=== PATIENT | male | born 1965 | race American Indian/Alaskan Native ===

== ENCOUNTER 2017-11-03 05:57 | Inpatient (IN) | payer BC ==
[~2017-11-03 05:57] MED LIST: Buffered Lidocaine 0.9% SYRIN* 5 ML/SYR SYRINGE INTRADERM ONE
[2017-11-03] MEDS ORDERED: ceFAZolin 2 GM PREMIX (*) 2 GM/50 ML BAG IVPB ONE (06:14)
[2017-11-03] MEDS ORDERED: ceFAZolin 1 GM in Dextrose (*) 1 GM/50 ML BAG IVPB ONE (06:14)
[2017-11-03] MEDS ORDERED: Clindamycin 900 MG IVPREMIX(* 900 MG/50 ML SDV IV ONE (06:14)
[2017-11-03] MEDS ORDERED: Buffered Lidocaine 0.9% SYRIN* 5 ML/SYR SYRINGE ONE (06:14)
[2017-11-03] MEDS ORDERED: Methylene Blue 0.5 %* 50 MG/10 ML AMP IV ONE (07:07)
[2017-11-03] MEDS ORDERED: Bupivacaine 0.25% SDV* 30 ML ONE (07:08)
[2017-11-03] MEDS ORDERED: fentaNYL* 50 MCG/ML 2 ML VIAL (100 MCG VIAL) ONE ×3 (07:22→09:56)
[2017-11-03] MEDS ORDERED: Midazolam* 1 MG/ML 2 ML VIAL (2 MG) ONE (07:22)
[2017-11-03] MEDS ORDERED: Heparin VIAL(*) 5000 UNITS/ML VIAL (FIVE THOUSAND) ONE (07:30)
[2017-11-03] MEDS ORDERED: Propofol* 10 MG/ML 20 ML BTL IV PUSH ONE (07:39)
[2017-11-03] MEDS ORDERED: Lidocaine 2% PF * 5 ML VIAL ONE (07:39)
[2017-11-03] MEDS ORDERED: Dexamethasone IV* 4 MG/ML 1 ML (4 MG) ONE (07:39)
[2017-11-03] MEDS ORDERED: Famotidine IV* 10 MG/ML 2 ML (20 mg) ONE (07:39)
[2017-11-03] MEDS ORDERED: Cisatracurium* 2 MG/ML MDV 5 ML ONE ×2 (07:40→08:20)
[2017-11-03] MEDS ORDERED: Hetastarch in NS* 500 ML IV ONE (08:04)
[2017-11-03] MEDS ORDERED: Acetaminophen IV 1GM/100ML * 10 MG/ML VIAL IVPB ONE (09:19)
[2017-11-03] MEDS ORDERED: DiMENhydriNATE IV* 50 MG/ML VIAL IV PUSH PRN (09:19)
[2017-11-03] MEDS ORDERED: Naloxone* 0.4 MG/ML 1 ML VIAL IV PRN (09:19)
[2017-11-03] MEDS ORDERED: Ondansetron INJ* 2 MG/ML VIAL IV PRN (09:19)
[2017-11-03] MEDS ORDERED: PROCHLORPERAZINE INJ 5 MG/ML 2 ML VIAL IV PRN (09:19)
[2017-11-03] MEDS ORDERED: fentaNYL* 50 MCG/ML 2 ML VIAL (100 MCG VIAL) IV PRN (09:19)
[2017-11-03] MEDS ORDERED: Ondansetron INJ* 2 MG/ML VIAL ONE (11:08)
[2017-11-03] MEDS ORDERED: Ketorolac INJ* 30 MG/ML 1 ML VIAL ONE (11:22)
[2017-11-03] MEDS ORDERED: HYDROcodone/ACET. 7.5/325 LIQ* 15 ML UDC PO PRN (11:32)
[2017-11-03] MEDS ORDERED: HYDROmorphone INJ* 2 MG/ML CARPUJECT SYRINGE IV PRN (11:32)
[2017-11-03] MEDS ORDERED: diPHENhydraMINE IV* 50 MG/ML 1 ml VIAL (BENADRYL) SLOW PUSH PRN (11:32)
[2017-11-03] MEDS ORDERED: Acetaminophen ADULT LIQ* 650 MG/20.3 ML UDC PO PRN (11:32)
[2017-11-03] MEDS ORDERED: Ketorolac INJ* 30 MG/ML 1 ML VIAL IV PRN (11:32)
--- NOTE | 2017-11-03 11:32 | BRIEFOPN ---
Brief Operative Note - Surgery Procedures: Procedures Pre-OP Diagnoses: Clinically severe obesity Post-op Diagnosis: same Procedure: Laparoscopic Courtney an Y gastric bypass Surgeon: Nini Asst: Vicente Anethesia: REGINO Preciado EBL: <100cc IVF: 1800cc LR 500cc hetastarch Specimen: none Drains: #7 KHOA Echols to gravity: 300cc
[2017-11-03] MEDS ORDERED: Dextrose 50% Syringe 50 ML* 25 GM/50 ML SYRINGE IV PUSH PRN (11:36)
[2017-11-03] MEDS: Insulin LISPRO* 1 UNITS UNIT SUBCUT SCH ×2 (13:41→17:43)
[2017-11-03] MEDS: Heparin VIAL(*) 5000 UNITS/ML VIAL (FIVE THOUSAND) SUBCUT SCH ×2 (14:39→21:39)
[2017-11-03] MEDS ORDERED: Metoclopramide IV* 5 MG/ML 2 ML VIAL IV PRN (14:51)
[2017-11-03] MEDS: Famotidine IV* 10 MG/ML 2 ML (20 mg) IV SLOW PU SCH (21:39)
[2017-11-04] MEDS: Insulin LISPRO* 1 UNITS UNIT SUBCUT SCH ×4 (00:03→18:15)
[2017-11-04] MEDS: Heparin VIAL(*) 5000 UNITS/ML VIAL (FIVE THOUSAND) SUBCUT SCH ×3 (06:04→21:53)
[2017-11-04] MEDS: Famotidine IV* 10 MG/ML 2 ML (20 mg) IV SLOW PU SCH ×2 (07:54→21:55)
--- NOTE | 2017-11-04 10:15 | RAD ---
HISTORY: Status post Courtney-en-Y gastroplasty, rule out leak COMPARISONS: None TECHNIQUE: A single contrast fluoroscopic study was performed of the esophagus and upper GI tract. Water-soluble liquid contrast was administered under fluoroscopic observation. Multiple digital spot images were obtained Total fluoroscopy time is 0.6 minutes. FINDINGS: ESOPHAGUS: The esophagus is normal in contour, course, and caliber. There is no stricture or web. Contrast passes easily through the gastroesophageal junction into the stomach. There is normal esophageal motility. STOMACH: The patient is status post Courtney-en-Y. DUODENUM: The patient is status post Courtney-en-Y. SMALL BOWEL: There is no obstruction to the gastrojejunostomy. Oral contrast passes easily into the proximal small bowel. There is an apparent diverticulum of the small bowel. There is no appreciable extravasation. Surgical drains are noted.. IMPRESSION: STATUS POST COURTNEY-EN-Y GASTROPLASTY WITHOUT APPRECIABLE OBSTRUCTION OR EXTRAVASATION. THERE IS AN APPARENT DIVERTICULUM OF THE JEJUNUM. CPT II Codes: G9500
[2017-11-04] MEDS: D5W 1/2 NS KCl 20 Meq 1000 ML* 1,000 ML IV SCH ×2 (11:09→19:00)
--- NOTE | 2017-11-04 12:16 | PN ---
Progress Note - Progress Note Date of Service: 11/04/17 Note: Surgery Progress: S: POD #1. Doing well; denies pain, N/V. Ambulating well. No SOB. O: Vital Signs - 8 hr 11/04/17 11/04/17 11/04/17 06:00 08:00 09:03 Respiratory 22 16 Rate O2 Sat by Pulse 95 93 Oximetry Intake and Output Last 24 Hours 11/02/17 11/03/17 11/04/17 11/05/17 06:59 06:59 06:59 06:59 Intake Total 4279 995 Output Total 1605 400 Balance 2674 595 Weight 391 lb 391 lb Intake: IV Fluids 4279 995 Hetastarch 500 LR 3779 995 Oral 0 Output: KHOA #1 80 Urine 375 Echols 1150 400 Gen: appears comfortable Heart: reg Lungs: clear ant Abd: +BS; lap sites ok; moderate KHOA drainage (serosang); soft; tenderness at KHOA site only labs: Laboratory Tests 11/03/17 11/03/17 11/03/17 12:27 17:13 23:53 POC Glucose (mg/dL) 201 H 199 H 173 H 11/04/17 05:53 POC Glucose (mg/dL) 161 H UGI: no evidence of obstruction or leak A/P: s/p Lap gastric bypass, doing well; patient also seen by Dr. Terrazas. Will start mariola hadley; Onesimo roberts/[place]
[2017-11-05] MEDS: Insulin LISPRO* 1 UNITS UNIT SUBCUT SCH ×2 (00:39→06:19)
[2017-11-05] MEDS: D5W 1/2 NS KCl 20 Meq 1000 ML* 1,000 ML IV SCH (03:08)
[2017-11-05] MEDS: Heparin VIAL(*) 5000 UNITS/ML VIAL (FIVE THOUSAND) SUBCUT SCH (06:20)
[2017-11-05 08:06] VITALS: BP 115/69
--- NOTE | 2017-11-05 09:49 | PN ---
Progress Note - Progress Note Date of Service: 11/05/17 Note: Subjective: Mr. Ramos is POD#2 from a helene-en-y. He is feeling well. He reports that he is ambulating frequently and has minimal abdominal pain. He has been consuming bariatric clears without N/V. Has not had a BM, but is passing flatus. Denies CP, palpitations, SOB, coughing, wheezing, abdominal pain, N/V. Current Medications Acetaminophen (Tylenol Adult Liq*) 650 mg PO Q6H PRN PRN Reason: Temp > 101 F Or Mild Pain Hydrocodone Bitart/Acetaminophen (Nortab 7.5/325 Liq*) 15 ml PO Q6H PRN PRN Reason: PAIN Last Admin: 11/05/17 04:35 Dose: 15 ml Dextrose (D50w Syringe 50 Ml*) 12.5 gm IV PUSH .FOR FS < 60 - SS PRN PRN Reason: FS < 60 Diphenhydramine HCl (Benadryl Iv*) 25 mg SLOW PUSH Q6H PRN PRN Reason: ITCHING Famotidine (Pepcid Iv*) 20 mg IV SLOW PU BID [facility] Last Admin: 11/04/17 21:55 Dose: 20 mg Fentanyl Citrate (Fentanyl*) 50 mcg IV Q5M PRN PRN Reason: PAIN - MODERATE Heparin Sodium (Porcine) (Heparin Vial(*)) 5,000 units SUBCUT Q8HR [facility] Last Admin: 11/05/17 06:20 Dose: 5,000 units Hydromorphone HCl (Dilaudid Inj*) 1 mg IV Q3H PRN PRN Reason: PAIN Potassium Chloride/Dextrose (D5w 1/2 Ns Kcl 20 Meq 1000 Ml*) 1,000 mls @ 125 mls/hr IV PER RATE [facility] Last Admin: 11/05/17 03:08 Dose: 125 mls/hr Insulin Human Lispro (Humalog*) 0 units SUBCUT Q6HR [facility] PRN Reason: Protocol Last Admin: 11/05/17 06:19 Dose: 6 unit Ketorolac Tromethamine (Toradol Inj*) 30 mg IV Q6H PRN PRN Reason: PAIN Stop: 11/05/17 11:34 Last Admin: 11/03/17 14:39 Dose: 30 mg Metoclopramide HCl (Reglan Iv*) 10 mg IV Q4H PRN PRN Reason: NAUSEA Objective: Vital Signs - 8 hr 11/05/17 11/05/17 11/05/17 04:33 04:35 06:24 Temperature 97.5 F Pulse Rate 94 Respiratory 18 18 18 Rate Blood Pressure 117/70 (mmHg) O2 Sat by Pulse 95 Oximetry 11/05/17 11/05/17 07:53 08:00 Temperature 98.1 F Pulse Rate 95 Respiratory 16 16 Rate Blood Pressure 115/69 (mmHg) O2 Sat by Pulse 95 95 Oximetry General: Pleasant male in NAD. CV: muffled heart sounds d/t body habitus; RRR w/o MRG. Resp: CTAB w/o RRW. GI: Abdomen is soft, non-distended and non-tender to light palpation. BS throughout. Incision sites and dressings appear clean, dry, and intact without evidence of infection. Minimal discharge from incision sites; has not required a dressing change. Seroanguinous fluid appreciated from KHOA drain. Extremities: w/o edema Assessment & Plan: Mr. Ramos is POD#2 from a helene-en-y. He is doing well. Will likely d/c today with a FU appointment scheduled for 11/08. Will go home with . KHOA education to be performed prior to d/c. Should follow a clear liquid diet with protein drink supplementation.
[2017-11-05] MEDS: Famotidine IV* 10 MG/ML 2 ML (20 mg) IV SLOW PU SCH (09:53)
--- NOTE | 2017-11-07 02:38 | OP ---
CC: ARSH Barney; [facility] OPERATIVE REPORT: DATE OF OPERATION: 11/03/17 DATE OF : 61 SURGEON: Ramsey Terrazas MD CCNP: Dr. Francesco Zhang ANESTHESIOLOGIST: Dr. Preciado. ANESTHESIA: General. PRE-OP DIAGNOSES: 1. Clinically severe obesity. 2. Type 2 diabetes. 3. Hypertension. 4. Obstructive sleep apnea. POST-OP DIAGNOSES: 1. Clinically severe obesity. 2. Type 2 diabetes. 3. Hypertension. 4. Obstructive sleep apnea. OPERATIVE PROCEDURE: Laparoscopic Courtney-en-Y gastric bypass procedure. BLOOD LOSS: Less than 50 cc. FLUIDS: Crystalloid fluid given. SPECIMEN: None. A #7 KHOA drain left in the abdomen at the gastrojejunostomy. DESCRIPTION OF PROCEDURE: The patient was identified in the preoperative area. Abdomen marked. Cons ent signed. I discussed the procedure with him and his son and they understood the risks, benefits, and alternatives. Again as we discussed, the patient was seen by Anesthesia. The patient was brought to the operating room, placed on the operating table in supine position. Pre operative antibiotics and sequential compression devices were placed on bilateral lower extremities. General anesthesia was induced. The patient's abdomen was prepped and draped in a standard surgical fashion. A time- out was performed. A left upper quadrant incision was made at the Nix's point. This was deepened down to the anterio r fascia, which was elevated and Veress needle was inserted into the abdominal cavity, which was allo wed to insufflate a pressure of 15 mmHg. The patient tolerated the insufflation well. The Veress ne edle was removed and a 12-mm trocar was inserted through this site. Laparoscope was inserted through here. I looked at the anterior wall adhesions to the lower abdomen along with a mesh that appeared to not be covering the defect in its entirety; however, there was no additional contents in both the defects other than peritoneal fat. Additional trocars were then placed in the following positions: A 12-mm in the upper midline, an add itional 12 and 5-mm in the right upper quadrant, and another 5- mm in the left lateral site. Attention was then turned towards the omentum and lysis of adhesions to the anterior abdominal wall a nd umbilical defect was carried out. This allowed us to retract the omentum superiorly and identify the transverse colon. This was retracted anteriorly and the ligament of Treitz was identified. We c ounted off approximately 50 cm from the ligament of Treitz and transected the bowel at this site. En terotomy was made proximal to the transection as this would become the biliopancreatic limb. The mes entery was . Next, approximately 90 cm was counted off to become the Courtney limb. Enterotomy was made and the jejun ojejunostomy was created with a 60-mm trevino ALEX stapling device. The common defect was reapproximated w ith interrupted silk suture in a figure-of- eight fashion and the mesenteric defect was similarly breonna sed. Next, the table was placed in a reverse Trendelenburg. The Doug retractor was inserted through the subxiphoid incision and the liver was retracted anteriorly to the right. This exposed the gastro esophageal fat pad, which was resected with LigaSure device and was brought out through the 12-mm tro car and passed off and not sent for pathology. The dissection of this fat pad did lead up towards th e angle of His. We bluntly dissected the stomach off of the left crura. Next, the stomach pouch was created at approximately second crossing vessel on the lesser curvature m aking a retrogastric window. A 45-mm trevino ALEX stapling device was fired across this along with additi onal 60-mm trevino ALEX stapling device to complete the pouch. Hemostasis was excellent. We did use a cl ip at the superior aspect, although it did appear that the staple line fully transected this, this wa s just for the completion sake. We did cut the end of the staple line to fully free the remnant from the pouch. Next, the Courtney limb was brought in apposition to the pouch, was sutured from the anterior mesenteric border to the lateral staple line of the pouch with 2-0 silk sutures. We used 3 sutures in all. Nex t, the Alexandria tube was inserted by the anesthesiologist into the stomach pouch. Gastrotomy was made o connie this and enterotomy was made adjacent to this in the small intestine. The two were made with a 3 0-mm trevino ALEX stapling device using only 2 cm of the stapler. Next, the common defect was reapproximated with interrupted 3-0 silk sutures. Next, we tested the anastomosis placing the Alexandria tube through the anastomosis into the proximal karrie l, which was then clamped. Methylene blue dye test was performed and we noted leakage . A 2-0 silk suture was placed in the U-stitch fashion taking the stomach and small bowel to shore up this a berlin. We performed the methylene blue dye test for the second time and the blue dye continued to drai n at this site. To perform the second methylene blue dye test, we took out the Alexandria tube and placed an 18-Qatari OG tube. This new U-stitch was then cut free and we additional cut some more superior stay suture as well and this allowed the staple line of the gastrojejunostomy to be appreciated. It appeared that the anteri or aspect of the staple line showed the leakage. We then placed interrupted 3-0 silk sutures in simp le fashion showing up the staple line. Next, the anastomosis was tested for the third time with methylene blue dye test and it showed no keyon dence of leakage. A #7 KHOA drain was again placed in the abdomen and brought out through the left lat eral most port site and sutured to the skin with 3-0 running sutures. Doug retractor was remove d and liver fell back down over the anastomosis. We reviewed the jejunojejunostomy, which was intact . There was no evidence of blue dye at this site either. The abdomen was allowed to collapse. The p atient was placed in a neutral position and trocars were removed under direct vision. Trocar sites w ere reapproximated with skin rachael followed by sterile dressing. The patient tolerated the procedu re well and was transferred to the PACU in stable condition. [id number]/[facility] [place] #: [id number]
== END 2017-11-05 11:20 | disposition home or self-care (01) | DRG 403 ==
LOC: OR 05:57 → ICU 11:32 → SSU 21:31
PROVIDERS: ADMIT Surgery; ATTEND Surgery
PROC: 0D164ZA Bypass Stomach to Jejunum, Percutaneous Endoscopic Approach (ICD-10-PCS; principal; 2017-11-03 07:30)
DX: E66.01 Morbid (severe) obesity due to excess calories (principal); E11.9 Type 2 diabetes mellitus without complications; G47.30 Sleep apnea, unspecified; I10 Essential (primary) hypertension; F32.9 Major depressive disorder, single episode, unspecified; K21.9 Gastro-esophageal reflux disease without esophagitis; E78.5 Hyperlipidemia, unspecified; Z68.44 Body mass index [BMI] 60.0-69.9, adult; Z83.3 Family history of diabetes mellitus; Z82.61 Family history of arthritis; Z83.49 Family history of other endocrine, nutritional and metabolic diseases
CPT/HCPCS: 43644; 74246; 87641; 94760; C1776; J0690; J1100; J1644; J1885; J2250; J2405; J2704; J3010